=== PATIENT | male | born 1945 | race Caucasian/White ===

== ENCOUNTER 2022-05-30 10:31 | Outpatient (CLI) | payer MEDICARE, BC ==
[2022-05-30 12:15] LABS: Mean Corpuscular Volume 84.1 fl (81.2-95.1); Platelet Count 364 10x3/uL (150-450); RBC Distribution Width 21.6 % (11.5-14.5); Red Blood Cell (RBC) Count 3.84 10x6/uL (4.32-5.72)
[2022-05-30 12:31] LABS: Anion Gap 15 mmol/L (10-20); BUN (Urea Nitrogen) 28 mg/dL (8.4-25.7); Calc. Creatinine Clearance 0 mL/min (70-130); Calcium 9.4 mg/dL (7.8-10.44); Carbon Dioxide 24 mmol/L (23-31); Chloride 104 mmol/L (98-107); Estimated GFR 52; Glucose 132 mg/dL (83-110); Sodium 138 mmol/L (136-145)
== END 2022-05-30 10:32 | disposition home or self-care (01) ==
LOC: CSHLAB 10:31
PROVIDERS: ATTEND Surgery
DX: Z01.818 Encounter for other preprocedural examination (principal); Z20.822 Contact with and (suspected) exposure to COVID-19; C34.90 Malignant neoplasm of unspecified part of unspecified bronchus or lung; C34.92 Malignant neoplasm of unspecified part of left bronchus or lung; C78.1 Secondary malignant neoplasm of mediastinum; E78.2 Mixed hyperlipidemia; D50.8 Other iron deficiency anemias
CPT/HCPCS: 36415; 80053; 82248; 83615; 84100; 84436; 84443; 84550; 85027; 87811; 93005; 93010

== ENCOUNTER 2022-05-31 05:40 | Day surgery (SDC) | payer MEDICARE, BC ==
[2022-05-29 12:25] VITALS: BMI 22.9
[2022-05-31] MEDS ORDERED: EPINEPHrine 1 MG/ML AMP ONE (06:31)
[2022-05-31] MEDS ORDERED: Bupivacaine PF 0.5% 30 ML VIAL ONE (06:32)
[2022-05-31] MEDS ORDERED: PROPOFOL 20 ML ONE (06:50)
[2022-05-31] MEDS ORDERED: Lidocaine 1% PF 5 ML VIAL ONE (06:50)
[2022-05-31] MEDS ORDERED: CEFAZOLIN 2 GM VIAL ONE (06:57)
[2022-05-31] MEDS ORDERED: ePHEDrine Sulfate 50 MG/10 ML VIAL ONE (07:32)
[2022-05-31] MEDS ORDERED: HYDROcodone/Acetaminophen 5/325 mg Tablet PO PRN (08:02)
[2022-05-31] MEDS ORDERED: Acetaminophen 325 MG TAB PO PRN (08:02)
== END 2022-05-31 09:25 | disposition home or self-care (01) ==
LOC: CSHSDC 05:40
PROVIDERS: ATTEND Surgery
PROC: 02HV33Z Insertion of Infusion Device into Superior Vena Cava, Percutaneous Approach (ICD-10-PCS; principal; 2022-05-31)
PROC: B518ZZA Fluoroscopy of Superior Vena Cava, Guidance (ICD-10-PCS; 2022-05-31)
DX: C34.90 Malignant neoplasm of unspecified part of unspecified bronchus or lung (principal); I25.10 Atherosclerotic heart disease of native coronary artery without angina pectoris; E78.5 Hyperlipidemia, unspecified; G62.9 Polyneuropathy, unspecified; I10 Essential (primary) hypertension; J44.9 Chronic obstructive pulmonary disease, unspecified; Z86.73 Personal history of transient ischemic attack (TIA), and cerebral infarction without residual deficits; Z79.82 Long term (current) use of aspirin; Z79.2 Long term (current) use of antibiotics; Z79.899 Other long term (current) drug therapy; Z20.822 Contact with and (suspected) exposure to COVID-19; Z87.891 Personal history of nicotine dependence; Z95.5 Presence of coronary angioplasty implant and graft; Z95.820 Peripheral vascular angioplasty status with implants and grafts
CPT/HCPCS: C1788; J0171; J0690; J1642; J2704; S0020

== ENCOUNTER 2022-09-04 09:31 | Outpatient (CLI) | payer MEDICARE, BC ==
[2022-09-04] MEDS ORDERED: Magnevist 469MG/ML 20 ML VIAL ONE (11:48)
== END 2022-09-04 09:32 | disposition home or self-care (01) ==
LOC: CSHMRI 09:31
PROVIDERS: ATTEND Radiology Radiation Oncology
DX: C79.51 Secondary malignant neoplasm of bone (principal); I67.89 Other cerebrovascular disease
CPT/HCPCS: 70553; A9579